=== PATIENT | female | born 1960 | race Caucasian/White ===

== ENCOUNTER 2017-10-02 11:46 | Inpatient (IN) | payer OTHER ==
--- NOTE | 2017-10-02 11:53 | PDOC ---
History of Present Illness <Elba Dominguez - Last Filed: 10/02/17 13:56> - General History Source: Patient Exam Limitations: Other - History of Present Illness Initial Comments: 10/02/17 12:14 The patient is a 56 year old female, with a significant past medical history of COPD, migraines and prior CVA/TIA, who presents to the emergency department sent by her neurologist Dr. Leslie, for evaluation of slurred speech, facial droop, and weakness since last night. The patient reports she felt bad last night. As per Dr. Leslie, patient has a history of TIAs in the past, however, he sent the patient to the ED for MRI with gadolinium to rule out neurosarcoidosis. Per Dr. Leslie, patients symptoms are intermittent and she did not have any difficulty finding words in the office. Patients history is limited due to clinical condition. Patient last known well yesterday. Allergies: Erythromycin base Neurologist: Dr. Leslie PCP: Dr. Pandya <Chidi Rodriguez - Last Filed: 10/02/17 14:32> - General Stated Complaint: ALTERED MENTAL (PCP SENT) Time Seen by Provider: 10/02/17 11:53 NIH Stroke Scale - Last Known Well Date/Time & Onset Date Last Known Well: 10/01/17 - Initial Evaluation Level of consciousness: Alert Ask patient the month and their age: Answers both correctly Ask patient to open & close eyes; make fist and let go: Obeys both correctly Best gaze (horizontal eye movement): Normal Visual field testing: No visual field loss Facial paresis (Show teeth/raise eyebrows/close eyes tight): Partial paralysis ( total or near paralysis of lower face) Motor Function: Left Arm: Normal Motor Function: Right Arm: Drift Motor Function: Left Leg: Normal (extends leg 30 degrees for 5 seconds without drift) Motor Function: Right Leg: Drift Limb Ataxia: No ataxia Sensory(Use pinprick test arms,legs,trunk,face/side to side): Normal Best language (Describe picture, name items, read sentences): Mild to moderate aphasia Dysarthria (read several words): Normal articulation Extinction and Inattention: No abnormality - Total Score NIH Stroke Scale Score: 5 <Elba Dominguez - Last Filed: 10/02/17 13:56> Past History <Elba Dominguez - Last Filed: 10/02/17 13:56> <Chidi Rodriguez - Last Filed: 10/02/17 14:32> - Past Medical History Allergies/Adverse Reactions: Allergies Allergy/AdvReac Type Severity Reaction Status Date / Time erythromycin base Allergy Verified 10/02/17 11:48 Home Medications: Ambulatory Orders Atorvastatin Ca [Lipitor] 40 mg PO HS 10/02/17 Fenofibrate,Micronized [Fenofibrate] 67 mg PO DAILY 10/02/17 Levothyroxine [Synthroid -] 50 mcg PO DAILY 10/02/17 Meclizine HCl 12.5 mg PO BID PRN 10/02/17 Metoprolol Tartrate 25 mg PO BID 10/02/17 Ranolazine [Ranexa] 500 mg PO BID 10/02/17 Review of Systems - Review of Systems Able to Perform ROS?: No Comments:: 10/02/17 12:14 History limited due to patient's clinical condition. <Chidi Rodriguez - Last Filed: 10/02/17 14:32> *Physical Exam - Vital Signs Last Vital Signs Temp Pulse Resp BP Pulse Ox 98.8 F 87 19 151/96 97 10/02/17 11:49 10/02/17 11:49 10/02/17 11:49 10/02/17 11:49 10/02/17 11:49 <Chidi Rodriguez - Last Filed: 10/02/17 14:32> ED Treatment Course - LABORATORY CBC & Chemistry Diagram: 10/02/17 12:20 10/02/17 12:20 <Elba Dominguez - Last Filed: 10/02/17 13:56> - LABORATORY CBC & Chemistry Diagram: 10/02/17 12:20 10/02/17 12:20 - RADIOLOGY Radiograph Interpretation: 10/02/17 14:31 EXAM: Head CT INTERPRETED BY: Dr. Serrano REVIEWED BY: Dr. Dominguez IMPRESSION: No CT evidence of intracranial hemorrhage or acute infarction. Status post left frontal craniotomy with mild focal hypodensity within the subjacent left frontal lobe probably on the basis of encephalomalacia as noted above. A surgical clip probably representing an aneurysm clip is seen within the left suprasellar region. No prior imaging studies are available at this facility for direct comparison. Atherosclerotic calcifications are noted along the cavernous carotid arteries bilaterally which are probably somewhat more prominent than would be for the patient's chronologic age. <Chidi Rodriguez - Last Filed: 10/02/17 14:32> Medical Decision Making - Medical Decision Making 10/02/17 12:16 Case d/w Dr. Leslie via phone. Patient would not be a tPA candidate as her symptoms started last night with facial droop. Of note, the word-finding difficulty appears to have started in ED. She also did not have drift in office , but in ED she has slight RUE/RLE drift. I will obtain emergent CTH to r/o ICH. If neg will plan for admission for MRI as per neuro. Pt is known to Dr. Pandya. 10/02/17 13:56 Late entry. Discussion with , who arrived as patient was going to CT. While she was in CT he stated that she has had word-finding difficulty with migraines in the past, this is not a new symptom. However, the facial droop is new. I have reviewed CTH, no acute bleed. Patient has clips due to prior aneurysm, they are MRI safe ( has the card). D/w Dr. Pandya, will place on obs. <Elba Dominguez - Last Filed: 10/02/17 13:56> - Medical Decision Making 10/02/17 12:31 First call placed to Dr. Leslie at 12:10. Case discussed at this time. <Chidi Rodriguez - Last Filed: 10/02/17 14:32> *DC/Admit/Observation/Transfer - Discharge Dispostion Admit: Yes <Elba Dominguez - Last Filed: 10/02/17 13:56> - Attestations Scribe Attestion: 10/02/17 12:14 Documentation prepared by Chidi Rodriguez, acting as medical doctor md for Elba Dominguez MD. <Chidi Rodriguez - Last Filed: 10/02/17 14:32> Diagnosis at time of Disposition: Facial droop Headache Qualifiers: Headache type: unspecified Headache chronicity pattern: episodic headache Intractability: not intractable Qualified Code(s): R51 - Headache - Discharge Dispostion Condition at time of disposition: Stable
[2017-10-02 12:29] LABS: BASO % 1.2 % (0-2.0); EOS % 2.5 % (0-4.5); HEMOGLOBIN 14.8 GM/dL (10.7-15.3); LYMPH % 40.5 % (8-40); MCH 28.9 pg (25.7-33.7); MCHC 32.2 g/dl (32.0-36.0); MEAN CELL VOLUME 89.7 fl (80-96); MEAN PLT VOLUME 9.2 fl (7.5-11.1); MONO % 8.5 % (3.8-10.2); NEUT % 47.3 % (42.8-82.8); PLATELET COUNT 341 K/MM3 (134-434); RBC 5.13 M/mm3 (3.60-5.2); RDW 14.3 % (11.6-15.6); WHITE BLOOD COUNT 5.5 K/mm3 (4.0-10.0)
[2017-10-02 12:40] LABS: INR 1.07 (0.82-1.09); PROTHROMBIN TIME (PATIENT) 12.1 SEC (9.98-11.88)
[2017-10-02 13:01] LABS: ALBUMIN 4.1 g/dl (3.4-5.0); ANION GAP 6 (8-16); BILIRUBIN,TOTAL 0.4 mg/dL (0.2-1.0); BLOOD UREA NITROGEN 19 mg/dL (7-18); CALCIUM 8.9 mg/dL (8.5-10.1); CHLORIDE 109 mmol/L (98-107); CHOLESTEROL 169 mg/dL (50-200); CO2 26 mmol/L (21-32); CREATININE 0.9 mg/dL (0.55-1.02); GLUCOSE,RANDOM 95 mg/dL (74-106); LDL CHOLESTEROL (ONLY SJRH) 104 mg/dL (5-100); POTASSIUM 4.1 mmol/L (3.5-5.1); SGOT/AST 13 U/L (15-37); SGPT/ALT 16 U/L (12-78); SODIUM 141 mmol/L (136-145); TOT PROT 7.6 g/dl (6.4-8.2); TRIGLYCERIDES 93 mg/dL (35-160)
[2017-10-02] MEDS: SODIUM CHLORIDE 1,000 ML IV SCH (13:01)
[2017-10-02 13:02] LABS: ALK PHOS 105 U/L (45-117); HDL CHOLESTEROL 48 mg/dL (40-60)
[2017-10-02] MEDS ORDERED: ACETAMINOPHEN/CAFFEINE/BUTALBITAL 1 TAB PO ONE (13:41)
[2017-10-02] MEDS ORDERED: ACETAMINOPHEN/CAFFEINE/BUTALBITAL 1 TAB ONE (13:47)
[2017-10-02] MEDS ORDERED: METOCLOPRAMIDE HCL INJECTION 10 MG/2 ML VIAL IVPUSH ONE (13:49)
[2017-10-02] MEDS ORDERED: ACETAMINOPHEN 1000 MG/100 ML VIAL (NON FORMULARY) IVPB ONE (13:49)
[2017-10-02] MEDS ORDERED: ACETAMINOPHEN INJECTION 100 ML IVPB ONE (13:51)
[2017-10-02] MEDS ORDERED: METOCLOPRAMIDE HCL INJECTION 10 MG/2 ML VIAL ONE (13:51)
--- NOTE | 2017-10-02 16:48 | HP ---
Admitting History and Physical - Primary Care Physician PCP: Brittney Pandya - Admission History of Present Illness: 56 year old female, with a significant past medical history of COPD, migraines and prior CVA/TIA, who presents to the emergency department sent by her neurologist Dr. Leslie, for evaluation of slurred speech, facial droop, and weakness since last night. The patient reports she felt bad last night. As per Dr. Leslie, patient has a history of TIAs in the past, however, he sent the patient to the ED for MRI with gadolinium to rule out neurosarcoidosis. Per Dr. Leslie, patients symptoms are intermittent and she did not have any difficulty finding words in the office. Patients history is limited due to clinical condition. - Past Medical History CLIENT SERVICES SPECIALIST: Yes: CVA, Migraine Pulmonary: Yes: COPD - Smoking History Smoking history: Unknown if ever smoked Home Medications - Allergies Allergies/Adverse Reactions: Allergies Allergy/AdvReac Type Severity Reaction Status Date / Time erythromycin base Allergy Verified 10/02/17 11:48 - Home Medications Home Medications: Ambulatory Orders Atorvastatin Ca [Lipitor] 40 mg PO HS 10/02/17 Fenofibrate,Micronized [Fenofibrate] 67 mg PO DAILY 10/02/17 Levothyroxine [Synthroid -] 50 mcg PO DAILY 10/02/17 Meclizine HCl 12.5 mg PO BID PRN 10/02/17 Metoprolol Tartrate 25 mg PO BID 10/02/17 Ranolazine [Ranexa] 500 mg PO BID 10/02/17 Physical Examination Vital Signs: Vital Signs Temperature 98.8 F 10/02/17 11:49 Pulse Rate 84 10/02/17 13:35 Respiratory Rate 18 10/02/17 13:35 Blood Pressure 138/79 10/02/17 13:35 O2 Sat by Pulse Oximetry (%) 97 10/02/17 13:35 Constitutional: Yes: No Distress HENT: Yes: Other (facial droop) Neck: Yes: Supple Cardiovascular: Yes: Regular Rate and Rhythm Respiratory: Yes: CTA Bilaterally Gastrointestinal: Yes: Normal Bowel Sounds Extremities: Yes: WNL Neurological: Yes: Alert, Oriented Labs: CBC, BMP 10/02/17 12:20 10/02/17 12:20 Problem List - Problems (1) Facial droop Assessment/Plan: will monitor head ct negative neuro on case Code(s): R29.810 - FACIAL WEAKNESS (2) Headache Assessment/Plan: prn pain meds Code(s): R51 - HEADACHE Qualifiers: Headache type: unspecified Headache chronicity pattern: episodic headache Intractability: not intractable Qualified Code(s): R51 - Headache Assessment/Plan Laboratory Tests 10/02/17 10/02/17 10/02/17 12:20 12:20 12:20 WBC 5.5 RBC 5.13 Hgb 14.8 Hct 46.0 H MCV 89.7 MCH 28.9 MCHC 32.2 RDW 14.3 Plt Count 341 MPV 9.2 Neutrophils % 47.3 Lymphocytes % 40.5 H Monocytes % 8.5 Eosinophils % 2.5 Basophils % 1.2 PT with INR 12.10 H INR 1.07 Sodium 141 Potassium 4.1 Chloride 109 H Carbon Dioxide 26 Anion Gap 6 L BUN 19 H Creatinine 0.9 Creat Clearance w eGFR > 60 Random Glucose 95 Calcium 8.9 Total Bilirubin 0.4 AST 13 L ALT 16 Alkaline Phosphatase 105 Creatine Kinase 58 Troponin I < 0.02 Total Protein 7.6 Albumin 4.1 Triglycerides 93 Cholesterol 169 Total LDL Cholesterol 104 H HDL Cholesterol 48 Blood Type Antibody Screen 10/02/17 12:20 WBC RBC Hgb Hct MCV MCH MCHC RDW Plt Count MPV Neutrophils % Lymphocytes % Monocytes % Eosinophils % Basophils % PT with INR INR Sodium Potassium Chloride Carbon Dioxide Anion Gap BUN Creatinine Creat Clearance w eGFR Random Glucose Calcium Total Bilirubin AST ALT Alkaline Phosphatase Creatine Kinase Troponin I Total Protein Albumin Triglycerides Cholesterol Total LDL Cholesterol HDL Cholesterol Blood Type O POSITIVE Antibody Screen Negative Active Medications Generic Name Dose Route Start Last Admin Trade Name Prakash PRN Reason Stop Dose Admin Sodium Chloride 1,000 mls @ 42 mls/hr 10/02/17 12:15 10/02/17 13:01 Normal Saline - IV 42 mls/hr ASDIR [facility] Administration
[2017-10-02] MEDS ORDERED: PNEUMOC 13-VAL CONJ-DIP CRM/PF 0.5 ML DISP.SYRIN IM ONE (18:15)
[2017-10-02 18:29] VITALS: BMI 37.8
--- NOTE | 2017-10-02 19:24 | CON.NEURO ---
Consult Consult Specialty:: NEUROLOGY-ALIVIA GARZA - History of Present Illness History of Present Illness: 56 y/o lady with a PMHx. sig for hypothyroidism, angina, right ant.cerebral art. aneurysm clipping, recurrent bronchitis, chronic vertigo hyperlipidemia and chronic migraine without aura. Meds-Synthroid, Fenofibrate, Ranexa, Meclizine and Botox every 3 months for migraine prophylaxis(last given 1 month ago with good results, WELDON has recurred 2 days ago). Reports yesterday her PMD noted right facial droop and she has had hesitant speech and word finding difficulty, intermittent.In my office today i noted the facial deficit and hesitaant speech in addition to a hint of possible upper face weakness-sent to ER where the ER physician also noted right arm weakness. No other neurologic symptoms. - Past Medical History [employer]: Yes: CVA, Migraine Pulmonary: Yes: COPD - Smoking History Smoking history: Unknown if ever smoked Home Medications - Allergies Allergies/Adverse Reactions: Allergies Allergy/AdvReac Type Severity Reaction Status Date / Time erythromycin base Allergy Verified 10/02/17 11:48 - Home Medications Home Medications: Ambulatory Orders Atorvastatin Ca [Lipitor] 40 mg PO HS 10/02/17 Fenofibrate,Micronized [Fenofibrate] 67 mg PO DAILY 10/02/17 Levothyroxine [Synthroid -] 50 mcg PO DAILY 10/02/17 Meclizine HCl 12.5 mg PO BID PRN 10/02/17 Metoprolol Tartrate 25 mg PO BID 10/02/17 Ranolazine [Ranexa] 500 mg PO BID 10/02/17 Physical Exam-Neuro Vital Signs: Vital Signs Temperature 98.8 F 10/02/17 11:49 Pulse Rate 68 10/02/17 16:54 Respiratory Rate 18 10/02/17 16:54 Blood Pressure 105/63 10/02/17 16:54 O2 Sat by Pulse Oximetry (%) 98 10/02/17 16:54 Labs: CBC, BMP 10/02/17 12:20 10/02/17 12:20 INR, PTT INR 1.07 (0.82-1.09) 10/02/17 12:20 - Neuro Exam Level Of Consciousness: Yes: Alert, Oriented to Person, Oriented to Place, Oriented to Time Eyes: Yes: PERRL Speech: WNL (Now speech is fluent, no aphasia) Dominant Hand: Right Mini Mental Exam: WNL Cranial Nerves II-XII Intact: No (Right central facial deficit but right frontalis appears weak too, not sure of this finding. + bitemporal pulses, no temporal tenderness.) Gag: Present DTR's: 2+ Left Bicep, 2+ Right Bicep, 2+ Left Tricep, 2+ Right Tricep, 2+ Left Brachioradialis, 2+ Right Brachioradialis, 2+ Left Achilles, 2+ Right Achilles Babinski: Absent Response to light touch: Normal Response to pain prick: Normal Response to temperature: Normal Response to vibration: Normal Motor Strength: 5/5: Left Arm, Right Arm, Left Leg, Right Leg (+ RUE pronator drift) Gait: Normal Assessment/Plan Pt. with new right central vs peripheral facial nerve motor deficit and RUE drift. CT head with left suprasellar clip only, no acute findings. Plan: Cont. current meds Depacon 500mg ivss q8hrs MRI brain+/-gadolinium( to look for ischemia and possible sarcoidosis ESR, CRP, MAGDY, KENDALL level, lyme titer
[2017-10-02] MEDS ORDERED: LORazepam 2 MG/ML SDV VIAL IVPUSH ONE (20:00)
[2017-10-02] MEDS ORDERED: PT OWN MED DRAWER 7, Y5N ONE (20:10)
[2017-10-02] MEDS: RANOLAZINE E.R. 500 MG TABLET (FP) PO SCH (21:17)
[2017-10-02] MEDS: VALPROATE SODIUM 500 MG/5 ML VIAL IVPB SCH (21:17)
[2017-10-02] MEDS: METOPROLOL TARTRATE 25 MG TABLET (FP) PO SCH (21:17)
[2017-10-02] MEDS ORDERED: ATORVASTATIN CA 40 MG TABLET (FP) PO SCH (22:00)
[2017-10-03] MEDS ORDERED: IBUPROFEN 400 MG TABLET (FP) PO ONE (02:30)
[2017-10-03] MEDS ORDERED: PT OWN MED DRAWER 7, Y5N ONE ×3 (05:05→20:52)
[2017-10-03] MEDS: VALPROATE SODIUM 500 MG/5 ML VIAL IVPB SCH ×3 (05:38→22:00)
[2017-10-03] MEDS: LEVOTHYROXINE NA 50 MCG TABLET (FP) PO SCH (06:09)
[2017-10-03 07:15] LABS: BASO % 0.7 % (0-2.0); EOS % 2.6 % (0-4.5); HEMATOCRIT 40.6 % (32.4-45.2); HEMOGLOBIN 13.4 GM/dL (10.7-15.3); LYMPH % 54.4 % (8-40); MCHC 33.1 g/dl (32.0-36.0); MEAN CELL VOLUME 90.7 fl (80-96); MONO % 7.5 % (3.8-10.2); NEUT % 34.8 % (42.8-82.8); PLATELET COUNT 318 K/MM3 (134-434); RBC 4.47 M/mm3 (3.60-5.2); RDW 13.9 % (11.6-15.6); WHITE BLOOD COUNT 6.2 K/mm3 (4.0-10.0)
[2017-10-03 07:45] LABS: ALBUMIN 3.5 g/dl (3.4-5.0); ANION GAP 11 (8-16); BLOOD UREA NITROGEN 17 mg/dL (7-18); CALCIUM 8.8 mg/dL (8.5-10.1); CHLORIDE 107 mmol/L (98-107); CO2 24 mmol/L (21-32); GLUCOSE,RANDOM 89 mg/dL (74-106); POTASSIUM 4.5 mmol/L (3.5-5.1); SGOT/AST 11 U/L (15-37); SODIUM 142 mmol/L (136-145)
[2017-10-03 07:48] LABS: ALK PHOS 94 U/L (45-117); BILIRUBIN,TOTAL 0.3 mg/dL (0.2-1.0); CREATININE 0.9 mg/dL (0.55-1.02); SGPT/ALT 15 U/L (12-78)
[2017-10-03] MEDS ORDERED: LORazepam 2 MG/ML SDV VIAL IVPUSH ONE (10:15)
[2017-10-03] MEDS: METOPROLOL TARTRATE 25 MG TABLET (FP) PO SCH (10:19)
[2017-10-03] MEDS: RANOLAZINE E.R. 500 MG TABLET (FP) PO SCH ×2 (10:19→21:57)
[2017-10-03] MEDS: FENOFIBRIC ACID 45 MG CAP PO SCH (12:30)
--- NOTE | 2017-10-03 12:41 | CON.CARD ---
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 Leslie, for evaluation of slurred speech, facial droop, and weakness since last night. The patient reports she felt bad last night. As per Dr. Leslie, patient has a history of TIAs in the past, however , he sent the patient to the ED for MRI with gadolinium to rule out neurosarcoidosis. Per Dr. Leslie, patients symptoms are intermittent and she did not have any difficulty finding words in the office. Patients history is limited due to clinical condition. Patient last known well yesterday. Pt also has occasional sudden onset of central chest tightness that awakens her , is moderately severe in intensity (8/10), and may last several minutes. Pt has had nitroglycerin, but forgets to use it. It does not usually occur with exertion, but pt admits to being relatively sedentary. Allergies: Erythromycin base Neurologist: Dr. Leslie PCP: Dr. Pandya - History Source History Provided By: Patient, Family Member (), Medical Record Limitations to Obtaining History: No Limitations - Past Medical History [employer]ING [employer]ATOR: Yes: CVA, Migraine Pulmonary: Yes: Asthma, COPD Reproductive: Yes: Postmenopausal ...: No Psych: Yes: Anxiety, Depression Rheumatology: Yes: Fibromyalgia Endocrine: No: Diabetes Mellitus - Past Surgical History Past Surgical History: Yes: Craniotomy (s/p cerebral aneuysm clip), Hysterectomy - Alcohol/Substance Use Hx Alcohol Use: No - Smoking History Smoking history: Current some day smoker (started smoking as teenager, smoked 1/ 2 ppd for about 20 yrs; now smokes a cigarette every few days) - Social History Usual Living Arrangement: With Spouse Home Medications - Allergies Allergies/Adverse Reactions: Allergies Allergy/AdvReac Type Severity Reaction Status Date / Time tree nut Allergy Severe Difficulty Verified 10/03/17 14:38 Breathing wheat Allergy Mild Itching Verified 10/03/17 14:38 erythromycin base Allergy Verified 10/02/17 11:48 fruits Allergy Severe Itching Uncoded 10/03/17 12:36 - Home Medications Home Medications: Ambulatory Orders Atorvastatin Ca [Lipitor] 40 mg PO HS 10/02/17 Fenofibrate,Micronized [Fenofibrate] 67 mg PO DAILY 10/02/17 Levothyroxine [Synthroid -] 50 mcg PO DAILY 10/02/17 Meclizine HCl 12.5 mg PO BID PRN 10/02/17 Metoprolol Tartrate 25 mg PO BID 10/02/17 Ranolazine [Ranexa] 500 mg PO BID 10/02/17 Family Disease History - Family Disease History Family Disease History: Diabetes: Father (several MIs, the first in his 30s; early 50s), Heart Disease: Father Review of Systems - Review of Systems Constitutional: reports: Weakness Eyes: reports: No Symptoms HENT: reports: No Symptoms Neck: reports: No Symptoms Cardiovascular: reports: Chest Pain Respiratory: reports: No Symptoms Gastrointestinal: reports: No Symptoms Genitourinary: reports: No Symptoms Breasts: reports: No Symptoms Reported Musculoskeletal: reports: Muscle Pain, Muscle Weakness Integumentary: reports: No Symptoms Neurological: reports: Change in Speech, Headache, Weakness Endocrine: reports: No Symptoms Hematology/Lymphatic: reports: No Symptoms Psychiatric: reports: Anxiety, Depression - Risk Factors Known Risk Factors: Yes: Age, Family History, Hypercholesterolemia, Hypertension , Physical Inactivity, Other (CVA x 2) Vital Signs: Vital Signs Temperature 97.7 F 10/03/17 06:00 Pulse Rate 65 10/03/17 06:00 Respiratory Rate 16 10/03/17 06:00 Blood Pressure 137/73 10/03/17 06:00 O2 Sat by Pulse Oximetry (%) 98 10/03/17 06:00 Constitutional: Yes: Calm, Obese Eyes: Yes: WNL HENT: Yes: WNL Neck: Yes: WNL Respiratory: Yes: WNL Gastrointestinal: Yes: Soft Renal/: No: Anuria Cardiovascular: Yes: Regular Rate and Rhythm JVD: No Carotid Bruit: No PMI: Non-Displaced Heart Sounds: Yes: S1, S2 Musculoskeletal: Yes: Joint Stiffness, Muscle Weakness Extremities: Yes: WNL Edema: No Peripheral Pulses WNL: Yes Integumentary: Yes: WNL Neurological: Yes: Weakness Psychiatric: Yes: Other (anxeity/depression) - Other Data Labs, Other Data: CBC, BMP 10/03/17 06:30 10/03/17 06:30 INR, PTT INR 1.07 (0.82-1.09) 10/02/17 12:20 Troponin, BNP 10/02/17 12:20 Troponin I < 0.02 Troponin, BNP 10/02/17 12:20 Troponin I < 0.02 Abnormal Lab Results 10/03/17 10/03/17 10/03/17 06:30 06:30 19:17 Neutrophils % 34.8 L D Lymphocytes % 54.4 H D AST 11 L C-Reactive Protein 1.0 H Echo: Pending Imaging - Results EKG: Image Reviewed (normal sinus rhythm; small Q in lead III) Problem List - Problems (1) CVA (cerebral vascular accident) Code(s): I63.9 - CEREBRAL INFARCTION, UNSPECIFIED (2) HTN (hypertension) Assessment/Plan: On synthroid; await TSH. Code(s): I10 - ESSENTIAL (PRIMARY) HYPERTENSION (3) Hyperlipidemia Assessment/Plan: On atorvastatin; keep LDL < 70 mg/dL (will increase from 40 mg to 80 mg daily; also on fenofibrate). Code(s): E78.5 - HYPERLIPIDEMIA, UNSPECIFIED (4) Hypothyroid Assessment/Plan: on synthroid. Code(s): E03.9 - HYPOTHYROIDISM, UNSPECIFIED (5) Obesity Assessment/Plan: Pt plans on losing a considerable amount of weight (weighed about 120 lbs at 24 yrs old). Code(s): E66.9 - OBESITY, UNSPECIFIED (6) Anxiety and depression Code(s): F41.8 - OTHER SPECIFIED ANXIETY DISORDERS (7) Risk for coronary artery disease between 10% and 20% in next 10 years per [place] score Assessment/Plan: Multiple cardiac risks. Pt had a stress test about 5 years ago. She has again been having chest pain, and has EKG changes. She has gained weight, still smokes an occasional cigarette, does little in the way of exercise, has LDL cholesterol > 100 mg/dL despite being on statin and fibrate, has anxeity/ depression, and has strong family hx of CAD. Will get ECHO for LVEF, wall thickness and motion, valve status. Stress treadmill MIBI (pt says she can walk on a treadmill); if unable to reach goals, will require pharmacologic therapy (hx of asthma and COPD; may require dobutamine as stress agent if unable to walk adequately). Code(s): Z91.89 - OTH PERSONAL RISK FACTORS, NOT ELSEWHERE CLASSIFIED (8) Headache Code(s): R51 - HEADACHE Qualifiers: Headache type: unspecified Headache chronicity pattern: episodic headache Intractability: not intractable Qualified Code(s): R51 - Headache (9) Bronchial asthma Assessment/Plan: Pt has been on metoprolol for years, does not think it has compromised her lungs. F/u pulmonary workup. Metoprolol stopped prior to stress MIBI; reevaluate need and safety of it after the test tomorrow before restarting. Code(s): J45.909 - UNSPECIFIED ASTHMA, UNCOMPLICATED
--- NOTE | 2017-10-03 14:37 | EKG ---
Test Reason : Blood Pressure : / mmHG Vent. Rate : 066 BPM Atrial Rate : 066 BPM P-R Int : 172 ms QRS Dur : 076 ms QT Int : 408 ms P-R-T Axes : 043 008 000 degrees QTc Int : 427 ms NORMAL SINUS RHYTHM CANNOT RULE OUT INFERIOR INFARCT , AGE UNDETERMINED ABNORMAL ECG NO PREVIOUS ECGS AVAILABLE Confirmed by MANDA GARZA, VERNELL ([id number]) on 10/03/2017 2:37:19 PM Referred By: Confirmed By:VERNELL HOLMAN MD
--- NOTE | 2017-10-03 16:42 | PN ---
Progress Note, Physician History of Present Illness: feeling much better - Current Medication List Current Medications: Active Medications Atorvastatin Calcium (Lipitor -) 80 mg PO HS [facility] Dexamethasone Sodium Phosphate (Decadron Injection -) 4 mg IVPUSH Q8H-IV [facility] Diphenhydramine HCl (Benadryl -) 25 mg PO Q6H PRN PRN Reason: ITCHINESS Fenofibric Acid (Trilipix -) 45 mg PO DAILY [facility] Last Admin: 10/03/17 12:30 Dose: 45 mg Sodium Chloride (Normal Saline -) 1,000 mls @ 42 mls/hr IV ASDIR [facility] Last Admin: 10/02/17 13:01 Dose: 42 mls/hr Levothyroxine Sodium (Synthroid -) 50 mcg PO DAILY@0700 [facility] Last Admin: 10/03/17 06:09 Dose: 50 mcg Ranolazine (Ranexa -) 500 mg PO BID [facility] Last Admin: 10/03/17 10:19 Dose: 500 mg Valproate Sodium (Depacon Injection -) 500 mg IVPB TID [facility] Last Admin: 10/03/17 13:52 Dose: 500 mg - Objective Vital Signs: Vital Signs Temperature 97.7 F 10/03/17 06:00 Pulse Rate 65 10/03/17 06:00 Respiratory Rate 16 10/03/17 14:00 Blood Pressure 137/73 10/03/17 06:00 O2 Sat by Pulse Oximetry (%) 98 10/03/17 14:00 Constitutional: Yes: No Distress HENT: Yes: Atraumatic Neck: Yes: Supple Cardiovascular: Yes: Regular Rate and Rhythm Respiratory: Yes: CTA Bilaterally Gastrointestinal: Yes: Normal Bowel Sounds Extremities: Yes: Other (has swelling in front of calves says its chronic but hurts) Neurological: Yes: Alert, Oriented Labs: CBC, BMP 10/03/17 06:30 10/03/17 06:30 INR, PTT INR 1.07 (0.82-1.09) 10/02/17 12:20 Problem List - Problems (1) Facial droop Assessment/Plan: almost resolved Code(s): R29.810 - FACIAL WEAKNESS (2) Headache Assessment/Plan: prn pain meds see neuro notes Code(s): R51 - HEADACHE Qualifiers: Headache type: unspecified Headache chronicity pattern: episodic headache Intractability: not intractable Qualified Code(s): R51 - Headache (3) Anxiety and depression Code(s): F41.8 - OTHER SPECIFIED ANXIETY DISORDERS (4) HTN (hypertension) Code(s): I10 - ESSENTIAL (PRIMARY) HYPERTENSION (5) Hyperlipidemia Code(s): E78.5 - HYPERLIPIDEMIA, UNSPECIFIED (6) Hypothyroid Code(s): E03.9 - HYPOTHYROIDISM, UNSPECIFIED
[2017-10-03] MEDS: DEXAMETHASONE SOD PHOSPHATE 4 MG/1 ML VIAL IVPUSH SCH (17:48)
--- NOTE | 2017-10-03 17:51 | PN ---
Progress Note (short form) - Note Progress Note: 56 y/o lady with a PMHx. sig for hypothyroidism, angina, right ant.cerebral art. aneurysm clipping, recurrent bronchitis, chronic vertigo hyperlipidemia and chronic migraine without aura. Meds-Synthroid, Fenofibrate, Ranexa, Meclizine and Botox every 3 months for migraine prophylaxis(last given 1 month ago with good results, WELDON has recurred 2 days ago). Reports yesterday her PMD noted right facial droop and she has had hesitant speech and word finding difficulty, intermittent.In my office today i noted the facial deficit and hesitaant speech in addition to a hint of possible upper face weakness-sent to ER where the ER physician also noted right arm weakness. No other neurologic symptoms. FU : WELDON continues 04/14 , though feels better than yesterday MRI BRAIN IMPRESSION: 1. No evidence of acute infarction or intracranial mass. No abnormal contrast enhancement within the leptomeninges or brain. 2. Postsurgical changes related to left frontotemporal craniotomy as described above, with encephalomalacia/gliosis in the inferolateral left frontal lobe and aneurysm clip in the region of the anterior communicating artery. - Past Medical History [employer]: Yes: CVA, Migraine Pulmonary: Yes: COPD - Smoking History Smoking history: Unknown if ever smoked Home Medications - Allergies Allergies/Adverse Reactions: Allergies Allergy/AdvReac Type Severity Reaction Status Date / Time erythromycin base Allergy Verified 10/02/17 11:48 - Home Medications Home Medications: Ambulatory Orders Atorvastatin Ca [Lipitor] 40 mg PO HS 10/02/17 Fenofibrate,Micronized [Fenofibrate] 67 mg PO DAILY 10/02/17 Levothyroxine [Synthroid -] 50 mcg PO DAILY 10/02/17 Meclizine HCl 12.5 mg PO BID PRN 10/02/17 Metoprolol Tartrate 25 mg PO BID 10/02/17 Ranolazine [Ranexa] 500 mg PO BID 10/02/17 Physical Exam-Neuro Vital Signs: Vital Signs Period Temp Pulse Resp BP Sys/Olivera Pulse Ox Last 24 Hr 97.7 F-98.9 F 65-88 16-20 137-150/62-73 98-98 Labs: CBCD WBC 6.2 K/mm3 (4.0-10.0) 10/03/17 06:30 RBC 4.47 M/mm3 (3.60-5.2) 10/03/17 06:30 Hgb 13.4 GM/dL (10.7-15.3) 10/03/17 06:30 Hct 40.6 % (32.4-45.2) 10/03/17 06:30 MCV 90.7 fl (80-96) 10/03/17 06:30 MCHC 33.1 g/dl (32.0-36.0) 10/03/17 06:30 RDW 13.9 % (11.6-15.6) 10/03/17 06:30 Plt Count 318 K/MM3 (134-434) 10/03/17 06:30 MPV 9.0 fl (7.5-11.1) 10/03/17 06:30 CMP Sodium 142 mmol/L (136-145) 10/03/17 06:30 Potassium 4.5 mmol/L (3.5-5.1) 10/03/17 06:30 Chloride 107 mmol/L (98-107) 10/03/17 06:30 Carbon Dioxide 24 mmol/L (21-32) 10/03/17 06:30 Anion Gap 11 (8-16) 10/03/17 06:30 BUN 17 mg/dL (7-18) 10/03/17 06:30 Creatinine 0.9 mg/dL (0.55-1.02) 10/03/17 06:30 Creat Clearance w eGFR > 60 (>60) 10/03/17 06:30 Calcium 8.8 mg/dL (8.5-10.1) 10/03/17 06:30 Total Bilirubin 0.3 mg/dL (0.2-1.0) D 10/03/17 06:30 AST 11 U/L (15-37) L 10/03/17 06:30 ALT 15 U/L (12-78) 10/03/17 06:30 Alkaline Phosphatase 94 U/L (45-117) 10/03/17 06:30 Total Protein 7.0 g/dl (6.4-8.2) 10/03/17 06:30 Albumin 3.5 g/dl (3.4-5.0) 10/03/17 06:30 - Neuro Exam Level Of Consciousness: Yes: Alert, Oriented to Person, Oriented to Place, Oriented to Time Eyes: Yes: PERRL Speech: WNL (Now speech is fluent, no aphasia) Dominant Hand: Right Mini Mental Exam: WNL Cranial Nerves II-XII Intact: No (Right central facial deficit but right frontalis appears weak too, not sure of this finding. + bitemporal pulses, no temporal tenderness.) Gag: Present DTR's: 2+ Left Bicep, 2+ Right Bicep, 2+ Left Tricep, 2+ Right Tricep, 2+ Left Brachioradialis, 2+ Right Brachioradialis, 2+ Left Achilles, 2+ Right Achilles Babinski: Absent Response to light touch: Normal Response to pain prick: Normal Response to temperature: Normal Response to vibration: Normal Motor Strength: 5/5: Left Arm, Right Arm, Left Leg, Right Leg (+ RUE pronator drift) Gait: Normal Assessment/Plan Pt. with new right central vs peripheral facial nerve motor deficit and RUE drift. CT head with left suprasellar clip only, no acute findings. Plan: start decadron , reglan , toradol Depacon 500mg ivss q8hrs MRI brain+/-gadolinium(-) was considering DHE though given angina/prior aneurysm will hold off check ESR, LYME , KENDALL
[2017-10-03] MEDS ORDERED: METOCLOPRAMIDE HCL INJECTION 10 MG/2 ML VIAL IVPUSH PRN (18:21)
[2017-10-03] MEDS ORDERED: KETOROLAC TROMETHAMINE 30 MG/1 ML VIAL IVPUSH ONE (18:24)
[2017-10-03] MEDS ORDERED: DIHYDROERGOTAMINE MESYLATE 1 MG/1 ML AMPULE IVPB SCH (18:30)
[2017-10-03] MEDS: diphenhydrAMINE HCL 25 MG CAPSULE (FP) PO PRN (18:55)
[2017-10-03] MEDS: ATORVASTATIN CA 80 MG TABLET (FP) PO SCH (21:57)
[2017-10-03] MEDS: SODIUM CHLORIDE 1,000 ML IV SCH (21:58)
[2017-10-04] MEDS: DEXAMETHASONE SOD PHOSPHATE 4 MG/1 ML VIAL IVPUSH SCH ×3 (01:13→17:06)
[2017-10-04] MEDS ORDERED: PT OWN MED DRAWER 7, Y5N ONE ×3 (03:29→21:39)
[2017-10-04] MEDS: VALPROATE SODIUM 500 MG/5 ML VIAL IVPB SCH ×3 (06:07→21:43)
[2017-10-04] MEDS: LEVOTHYROXINE NA 50 MCG TABLET (FP) PO SCH (06:07)
[2017-10-04] MEDS: FENOFIBRIC ACID 45 MG CAP PO SCH ×2 (09:39→13:13)
[2017-10-04] MEDS: RANOLAZINE E.R. 500 MG TABLET (FP) PO SCH ×3 (09:39→21:43)
[2017-10-04] MEDS: SODIUM CHLORIDE 1,000 ML IV SCH (13:11)
[2017-10-04] MEDS ORDERED: oxyCODONE HCL 5 MG TABLET PO ONE (15:15)
--- NOTE | 2017-10-04 16:54 | PN ---
Progress Note, Physician Chief Complaint: Pt sitting up at bedside; A&Ox3; still has trouble speaking smoothly (stutters, repeats); no chest pain or dyspnea. + Headache. Anxious. History of Present Illness: The patient is a 56 year old female, with a significant past medical history of COPD, HTN, hypothyroidism, hyperlipidemia, migraines and prior TIA, and CVA x 2 , s/p craniotomy for cerebral left anterior communicating artery aneurysm clipping, migraine headaches, obesity, anxiety/depression, cigarettes, family hx [place] (father, at young age), fibromyalgia, who presents to the emergency department sent by her neurologist Dr. Leslie, for evaluation of slurred speech, facial droop, and weakness since last night. The patient reports she felt bad last night. As per Dr. Leslie, patient has a history of TIAs in the past, however , he sent the patient to the ED for MRI with gadolinium to rule out neurosarcoidosis. Per Dr. Leslie, patients symptoms are intermittent and she did not have any difficulty finding words in the office. Patients history is limited due to clinical condition. Patient last known well yesterday. Pt also has occasional sudden onset of central chest tightness that awakens her , is moderately severe in intensity (8/10), and may last several minutes. Pt has had nitroglycerin, but forgets to use it. It does not usually occur with exertion, but pt admits to being relatively sedentary. Allergies: Erythromycin base Neurologist: Dr. Leslie PCP: Dr. Pandya - Current Medication List Current Medications: Active Medications Atorvastatin Calcium (Lipitor -) 80 mg PO HS [facility] Last Admin: 10/03/17 21:57 Dose: 80 mg Dexamethasone Sodium Phosphate (Decadron Injection -) 4 mg IVPUSH Q8H-IV [facility] Last Admin: 10/04/17 10:03 Dose: Not Given Diphenhydramine HCl (Benadryl -) 25 mg PO Q6H PRN PRN Reason: ITCHINESS Last Admin: 10/03/17 18:55 Dose: 25 mg Fenofibric Acid (Trilipix -) 45 mg PO DAILY [facility] Last Admin: 10/04/17 13:13 Dose: 45 mg Sodium Chloride (Normal Saline -) 1,000 mls @ 42 mls/hr IV ASDIR [facility] Last Admin: 10/04/17 13:11 Dose: Not Given Levothyroxine Sodium (Synthroid -) 50 mcg PO DAILY@0700 [facility] Last Admin: 10/04/17 06:07 Dose: 50 mcg Metoclopramide HCl (Reglan Injection -) 10 mg IVPUSH Q8H PRN PRN Reason: NAUSEA AND/OR VOMITING Ranolazine (Ranexa -) 500 mg PO BID [facility] Last Admin: 10/04/17 13:12 Dose: 500 mg Valproate Sodium (Depacon Injection -) 500 mg IVPB TID [facility] Last Admin: 10/04/17 13:11 Dose: 500 mg - Objective Vital Signs: Vital Signs Temperature 98.3 F 10/04/17 14:17 Pulse Rate 98 H 10/04/17 14:17 Respiratory Rate 20 10/04/17 14:17 Blood Pressure 142/86 10/04/17 14:17 O2 Sat by Pulse Oximetry (%) 98 10/04/17 08:00 Constitutional: Yes: Anxious Eyes: Yes: WNL HENT: Yes: WNL Neck: Yes: WNL Cardiovascular: Yes: WNL Respiratory: Yes: WNL Gastrointestinal: Yes: Soft, Abdomen, Obese ...Rectal Exam: Yes: Deferred Genitourinary: No: Anuria Breast(s): Yes: WNL Musculoskeletal: Yes: Muscle Weakness Extremities: Yes: WNL Edema: No Peripheral Pulses WNL: Yes Integumentary: Yes: WNL Neurological: Yes: Weakness Psychiatric: Yes: Other Labs: CBC, BMP 10/03/17 06:30 10/03/17 06:30 INR, PTT INR 1.07 (0.82-1.09) 10/02/17 12:20 Abnormal Lab Results 10/03/17 19:17 C-Reactive Protein 1.0 H Problem List - Problems (1) CVA (cerebral vascular accident) Assessment/Plan: hx craniotomy for cerebral aneurysmal clip. Code(s): I63.9 - CEREBRAL INFARCTION, UNSPECIFIED (2) HTN (hypertension) Assessment/Plan: Restart metoprolol (+ stress MIBI; HTN; despite hx of COPD and "asthma", pt has tolerated the medication well for years0> Code(s): I10 - ESSENTIAL (PRIMARY) HYPERTENSION (3) Hyperlipidemia Assessment/Plan: On atorvastatin; keep LDL < 70 mg/dL (will increase from 40 mg to 80 mg daily; also on fenofibrate). Code(s): E78.5 - HYPERLIPIDEMIA, UNSPECIFIED (4) Hypothyroid Assessment/Plan: on synthroid; TSH WNL. Code(s): E03.9 - HYPOTHYROIDISM, UNSPECIFIED (5) Obesity Code(s): E66.9 - OBESITY, UNSPECIFIED (6) Anxiety and depression Code(s): F41.8 - OTHER SPECIFIED ANXIETY DISORDERS (7) Risk for coronary artery disease between 10% and 20% in next 10 years per [place] score Assessment/Plan: Multiple cardiac risks. Pt had a stress test about 5 years ago. She has again been having chest pain, and has EKG changes. She has gained weight, still smokes an occasional cigarette, does little in the way of exercise, has LDL cholesterol > 100 mg/dL despite being on statin and fibrate, has anxeity/ depression, and has strong family hx of CAD. Will get ECHO for LVEF, wall thickness and motion, valve status. Stress treadmill MIBI (pt says she can walk on a treadmill); if unable to reach goals, will require pharmacologic therapy (hx of asthma and COPD; may require dobutamine as stress agent if unable to walk adequately). Code(s): Z91.89 - OTH PERSONAL RISK FACTORS, NOT ELSEWHERE CLASSIFIED (8) Headache Code(s): R51 - HEADACHE Qualifiers: Headache type: unspecified Headache chronicity pattern: episodic headache Intractability: not intractable Qualified Code(s): R51 - Headache (9) Bronchial asthma Assessment/Plan: Pt has been on metoprolol for years, does not think it has compromised her lungs. F/u pulmonary workup. Code(s): J45.909 - UNSPECIFIED ASTHMA, UNCOMPLICATED (10) Coronary artery disease Assessment/Plan: Stress MIBI: + for two areas of ischemia (small sized, mlldly intense apical, and small sized, moderately intense basal inferior oliveira); poor exercise capacity; mildly submaximal HR achieved). Plan: add clopidogrel to ASA *discussed with Dr. Torres; the combination may be used). Restart metoprolol ER. For coronary angiogram: tranfer after the weekend. Code(s): I25.10 - ATHSCL HEART DISEASE OF [place] CORONARY ARTERY W/O ANG PCTRS
[2017-10-04] MEDS: metoPROLOL SUCCINATE 25 MG TAB.SR.24H (FP) PO SCH (18:31)
[2017-10-04] MEDS: CLOPIDOGREL BISULFATE 75 MG TABLET (FP) PO SCH (18:31)
[2017-10-04] MEDS: ALPRAZolam 0.25 MG TABLET PO SCH (21:43)
[2017-10-04] MEDS: ATORVASTATIN CA 80 MG TABLET (FP) PO SCH (21:43)
[2017-10-04] MEDS: MORPHINE SULFATE 10 MG/1 ML *VIAL IVPUSH PRN (22:07)
[2017-10-05] MEDS: DEXAMETHASONE SOD PHOSPHATE 4 MG/1 ML VIAL IVPUSH SCH ×3 (01:38→18:30)
[2017-10-05] MEDS: MORPHINE SULFATE 10 MG/1 ML *VIAL IVPUSH PRN ×2 (04:46→13:50)
[2017-10-05] MEDS ORDERED: PT OWN MED DRAWER 7, Y5N ONE ×4 (05:49→21:51)
[2017-10-05] MEDS: VALPROATE SODIUM 500 MG/5 ML VIAL IVPB SCH ×3 (06:05→21:59)
[2017-10-05] MEDS: LEVOTHYROXINE NA 50 MCG TABLET (FP) PO SCH (06:05)
[2017-10-05] MEDS: RANOLAZINE E.R. 500 MG TABLET (FP) PO SCH ×2 (11:10→21:59)
[2017-10-05] MEDS: CLOPIDOGREL BISULFATE 75 MG TABLET (FP) PO SCH (11:10)
[2017-10-05] MEDS: metoPROLOL SUCCINATE 25 MG TAB.SR.24H (FP) PO SCH (11:10)
[2017-10-05] MEDS: FENOFIBRIC ACID 45 MG CAP PO SCH (11:10)
--- NOTE | 2017-10-05 11:17 | PN ---
Progress Note, Physician History of Present Illness: feeling good - Current Medication List Current Medications: Active Medications Alprazolam (Xanax -) 0.5 mg PO HS [facility] Last Admin: 10/04/17 21:43 Dose: 0.5 mg Atorvastatin Calcium (Lipitor -) 80 mg PO HS [facility] Last Admin: 10/04/17 21:43 Dose: 80 mg Clopidogrel Bisulfate (Plavix -) 75 mg PO DAILY [facility] Last Admin: 10/04/17 18:31 Dose: 75 mg Dexamethasone Sodium Phosphate (Decadron Injection -) 4 mg IVPUSH Q8H-IV [facility] Last Admin: 10/05/17 01:38 Dose: 4 mg Diphenhydramine HCl (Benadryl -) 25 mg PO Q6H PRN PRN Reason: ITCHINESS Last Admin: 10/03/17 18:55 Dose: 25 mg Fenofibric Acid (Trilipix -) 45 mg PO DAILY [facility] Last Admin: 10/04/17 13:13 Dose: 45 mg Sodium Chloride (Normal Saline -) 1,000 mls @ 42 mls/hr IV ASDIR [facility] Last Admin: 10/04/17 13:11 Dose: Not Given Levothyroxine Sodium (Synthroid -) 50 mcg PO DAILY@0700 [facility] Last Admin: 10/05/17 06:05 Dose: 50 mcg Metoclopramide HCl (Reglan Injection -) 10 mg IVPUSH Q8H PRN PRN Reason: NAUSEA AND/OR VOMITING Last Admin: 10/05/17 08:48 Dose: 10 mg Metoprolol Succinate (Toprol Xl -) 25 mg PO DAILY [facility] Last Admin: 10/04/17 18:31 Dose: 25 mg Morphine Sulfate (Morphine Injection -) 4 mg IVPUSH Q6H PRN PRN Reason: PAIN LEVEL 7 - 10 Last Admin: 10/05/17 04:46 Dose: 4 mg Ranolazine (Ranexa -) 500 mg PO BID [facility] Last Admin: 10/04/17 21:43 Dose: 500 mg Valproate Sodium (Depacon Injection -) 500 mg IVPB TID [facility] Last Admin: 10/05/17 06:05 Dose: 500 mg - Objective Vital Signs: Vital Signs Temperature 97.5 F L 10/05/17 09:05 Pulse Rate 86 10/05/17 09:05 Respiratory Rate 18 10/05/17 09:05 Blood Pressure 115/63 10/05/17 08:42 O2 Sat by Pulse Oximetry (%) 97 10/04/17 22:00 Constitutional: Yes: No Distress HENT: Yes: Atraumatic Neck: Yes: Supple Cardiovascular: Yes: Regular Rate and Rhythm Respiratory: Yes: CTA Bilaterally Gastrointestinal: Yes: Normal Bowel Sounds Extremities: Yes: WNL Neurological: Yes: Alert, Oriented Labs: CBC, BMP 10/03/17 06:30 10/03/17 06:30 INR, PTT INR 1.07 (0.82-1.09) 10/02/17 12:20 Problem List - Problems (1) Facial droop Assessment/Plan: resolved Code(s): R29.810 - FACIAL WEAKNESS (2) Headache Assessment/Plan: on pain meds doing well Code(s): R51 - HEADACHE Qualifiers: Headache type: unspecified Headache chronicity pattern: episodic headache Intractability: not intractable Qualified Code(s): R51 - Headache (3) Anxiety and depression Assessment/Plan: on meds Code(s): F41.8 - OTHER SPECIFIED ANXIETY DISORDERS (4) HTN (hypertension) Assessment/Plan: on meds stable Code(s): I10 - ESSENTIAL (PRIMARY) HYPERTENSION (5) Hyperlipidemia Assessment/Plan: on meds stable Code(s): E78.5 - HYPERLIPIDEMIA, UNSPECIFIED (6) Hypothyroid Assessment/Plan: on meds Code(s): E03.9 - HYPOTHYROIDISM, UNSPECIFIED (7) Coronary artery disease Assessment/Plan: d/w cardiology pt will be transfered to tertiary care for cardiac cath Code(s): I25.10 - ATHSCL HEART DISEASE OF [place] CORONARY ARTERY W/O ANG PCTRS
--- NOTE | 2017-10-05 11:27 | PN ---
Progress Note, Physician History of Present Illness: [facility] examined [facility]. no overnight events. no new complaints. - Current Medication List Current Medications: Active Medications Alprazolam (Xanax -) 0.5 mg PO HS [facility] Last Admin: 10/04/17 21:43 Dose: 0.5 mg Atorvastatin Calcium (Lipitor -) 80 mg PO HS [facility] Last Admin: 10/04/17 21:43 Dose: 80 mg Clopidogrel Bisulfate (Plavix -) 75 mg PO DAILY [facility] Last Admin: 10/05/17 11:10 Dose: 75 mg Dexamethasone Sodium Phosphate (Decadron Injection -) 4 mg IVPUSH Q8H-IV [facility] Last Admin: 10/05/17 11:10 Dose: 4 mg Diphenhydramine HCl (Benadryl -) 25 mg PO Q6H PRN PRN Reason: ITCHINESS Last Admin: 10/03/17 18:55 Dose: 25 mg Fenofibric Acid (Trilipix -) 45 mg PO DAILY [facility] Last Admin: 10/05/17 11:10 Dose: 45 mg Levothyroxine Sodium (Synthroid -) 50 mcg PO DAILY@0700 [facility] Last Admin: 10/05/17 06:05 Dose: 50 mcg Metoclopramide HCl (Reglan Injection -) 10 mg IVPUSH Q8H PRN PRN Reason: NAUSEA AND/OR VOMITING Last Admin: 10/05/17 08:48 Dose: 10 mg Metoprolol Succinate (Toprol Xl -) 25 mg PO DAILY [facility] Last Admin: 10/05/17 11:10 Dose: 25 mg Morphine Sulfate (Morphine Injection -) 4 mg IVPUSH Q6H PRN PRN Reason: PAIN LEVEL 7 - 10 Last Admin: 10/05/17 04:46 Dose: 4 mg Ranolazine (Ranexa -) 500 mg PO BID [facility] Last Admin: 10/05/17 11:10 Dose: 500 mg Valproate Sodium (Depacon Injection -) 500 mg IVPB TID [facility] Last Admin: 10/05/17 06:05 Dose: 500 mg - Objective Vital Signs: Vital Signs Temperature 97.5 F L 10/05/17 09:05 Pulse Rate 86 10/05/17 09:05 Respiratory Rate 18 10/05/17 09:05 Blood Pressure 115/63 10/05/17 08:42 O2 Sat by Pulse Oximetry (%) 97 10/04/17 22:00 Constitutional: Yes: No Distress, Calm Eyes: Yes: Conjunctiva Clear, EOM Intact, PERRL HENT: Yes: Atraumatic, Normocephalic Neck: Yes: Supple, Trachea Midline Cardiovascular: Yes: Regular Rate and Rhythm, S1, S2. No: Bradycardia, Tachycardia, Pulse Irregular, Bruit, JVD, Gallop, Murmur, Rub, S3, S4, Varicosities Respiratory: Yes: Regular, CTA Bilaterally. No: Rales, Rhonchi, Wheezes Gastrointestinal: Yes: Normal Bowel Sounds, Soft. No: Distention, Tenderness Extremities: Yes: WNL Edema: No Peripheral Pulses WNL: Yes Neurological: Yes: Alert, Oriented Psychiatric: Yes: Alert, Oriented Labs: CBC, BMP 10/03/17 06:30 10/03/17 06:30 INR, PTT INR 1.07 (0.82-1.09) 10/02/17 12:20 - ....Imaging Chest X-ray: Report Reviewed, Image Reviewed EKG: Report Reviewed, Image Reviewed Other: Report Reviewed, Image Reviewed Assessment/Plan 56 year old woman h/o COPD, HTN, hypothyroidism, hyperlipidemia, migraines and prior TIA, and CVA x 2, s/p craniotomy for cerebral left anterior communicating artery aneurysm clipping, migraine headaches, obesity, anxiety/depression, cigarettes, family hx [place] (father, at young age), fibromyalgia, admitetd with slurred speech, facial droop, and weakness, occasional chest pain. CAD- -nuclear stress test yesterday showed ischemia -now on plavix, lipitor, toprol, ranexa -clarify if ASA in addition to Plavix also safe -plan is for transfer for cardiac cath after the weekend
[2017-10-05] MEDS: diphenhydrAMINE HCL 25 MG CAPSULE (FP) PO PRN (18:30)
--- NOTE | 2017-10-05 19:13 | PN ---
Progress Note, Physician History of Present Illness: 56 y/o lady with a PMHx. sig for hypothyroidism, angina, right ant.cerebral art. aneurysm clipping, recurrent bronchitis, chronic vertigo hyperlipidemia and chronic migraine without aura. Meds-Synthroid, Fenofibrate, Ranexa, Meclizine and Botox every 3 months for migraine prophylaxis(last given 1 month ago with good results, WELDON has recurred 2 days ago). Reports yesterday her PMD noted right facial droop and she has had hesitant speech and word finding difficulty, intermittent.In my office today i noted the facial deficit and hesitaant speech in addition to a hint of possible upper face weakness-sent to ER where the ER physician also noted right arm weakness. No other neurologic symptoms. FU Neurology : I saw and examined the pt today. She states that her R side face weakness and slurred speech is improved; she reports having mild old R HP after aneurysm sx which was worsen prior to this admission- this occurred 3 weeks after botox injection for migraine - . She still c/o headache . MRI BRAIN IMPRESSION: 1. No evidence of acute infarction or intracranial mass. No abnormal contrast enhancement within the leptomeninges or brain. 2. Postsurgical changes related to left frontotemporal craniotomy as described above, with encephalomalacia/gliosis in the inferolateral left frontal lobe and aneurysm clip in the region of the anterior communicating artery. PE: A & o X3 , mild dysarthria CN: 2-12 int ; no face droop or gaze preference Motor: mild R UE drift , ? base line; R LE 5-/5 Sensory : Int LT/PP No dysmetria DTR 1+ ALL Gait: stable CV: RRR Lungs : CTA b/l A/P: ? Basilar migraine , refractory not a DHE candidate b/o CAD ? [place] palsy C/W depakote and dexamethasone I suggest magnesium sulfate 1 gm iv Health maintenance per primary team. Thank you. Patrick Nava MD - Current Medication List Current Medications: Active Medications Alprazolam (Xanax -) 0.5 mg PO HS [facility] Last Admin: 10/04/17 21:43 Dose: 0.5 mg Atorvastatin Calcium (Lipitor -) 80 mg PO HS [facility] Last Admin: 10/04/17 21:43 Dose: 80 mg Clopidogrel Bisulfate (Plavix -) 75 mg PO DAILY [facility] Last Admin: 10/05/17 11:10 Dose: 75 mg Dexamethasone Sodium Phosphate (Decadron Injection -) 4 mg IVPUSH Q8H-IV [facility] Last Admin: 10/05/17 18:30 Dose: 4 mg Diphenhydramine HCl (Benadryl -) 25 mg PO Q6H PRN PRN Reason: ITCHINESS Last Admin: 10/05/17 18:30 Dose: 25 mg Fenofibric Acid (Trilipix -) 45 mg PO DAILY [facility] Last Admin: 10/05/17 11:10 Dose: 45 mg Levothyroxine Sodium (Synthroid -) 50 mcg PO DAILY@0700 [facility] Last Admin: 10/05/17 06:05 Dose: 50 mcg Metoclopramide HCl (Reglan Injection -) 10 mg IVPUSH Q8H PRN PRN Reason: NAUSEA AND/OR VOMITING Last Admin: 10/05/17 08:48 Dose: 10 mg Metoprolol Succinate (Toprol Xl -) 25 mg PO DAILY [facility] Last Admin: 10/05/17 11:10 Dose: 25 mg Morphine Sulfate (Morphine Injection -) 4 mg IVPUSH Q6H PRN PRN Reason: PAIN LEVEL 7 - 10 Last Admin: 10/05/17 13:50 Dose: 4 mg Ranolazine (Ranexa -) 500 mg PO BID [facility] Last Admin: 10/05/17 11:10 Dose: 500 mg Valproate Sodium (Depacon Injection -) 500 mg IVPB TID [facility] Last Admin: 10/05/17 13:50 Dose: 500 mg - Objective Vital Signs: Vital Signs Temperature 98.0 F 10/05/17 14:25 Pulse Rate 63 10/05/17 14:25 Respiratory Rate 20 10/05/17 15:00 Blood Pressure 118/60 10/05/17 14:25 O2 Sat by Pulse Oximetry (%) 97 10/05/17 15:00 Labs: CBC, BMP 10/03/17 06:30 10/03/17 06:30 INR, PTT INR 1.07 (0.82-1.09) 10/02/17 12:20
[2017-10-05] MEDS: ATORVASTATIN CA 80 MG TABLET (FP) PO SCH (21:59)
[2017-10-05] MEDS: ALPRAZolam 0.25 MG TABLET PO SCH (22:00)
[2017-10-06] MEDS: MORPHINE SULFATE 10 MG/1 ML *VIAL IVPUSH PRN ×2 (00:20→21:44)
[2017-10-06] MEDS: DEXAMETHASONE SOD PHOSPHATE 4 MG/1 ML VIAL IVPUSH SCH ×3 (02:12→18:55)
[2017-10-06] MEDS ORDERED: PT OWN MED DRAWER 7, Y5N ONE ×3 (06:21→21:40)
[2017-10-06] MEDS: LEVOTHYROXINE NA 50 MCG TABLET (FP) PO SCH (06:26)
[2017-10-06] MEDS: VALPROATE SODIUM 500 MG/5 ML VIAL IVPB SCH ×3 (06:27→21:45)
[2017-10-06] MEDS: FENOFIBRIC ACID 45 MG CAP PO SCH (09:24)
[2017-10-06] MEDS: RANOLAZINE E.R. 500 MG TABLET (FP) PO SCH ×2 (09:24→21:44)
[2017-10-06] MEDS: metoPROLOL SUCCINATE 25 MG TAB.SR.24H (FP) PO SCH (09:24)
[2017-10-06] MEDS: CLOPIDOGREL BISULFATE 75 MG TABLET (FP) PO SCH (09:24)
--- NOTE | 2017-10-06 14:02 | PN ---
Progress Note, Physician History of Present Illness: seen and examined today in [facility]. no new complaints. no overnight events. - Current Medication List Current Medications: Active Medications Alprazolam (Xanax -) 0.5 mg PO HS [facility] Last Admin: 10/05/17 22:00 Dose: 0.5 mg Atorvastatin Calcium (Lipitor -) 80 mg PO HS [facility] Last Admin: 10/05/17 21:59 Dose: 80 mg Clopidogrel Bisulfate (Plavix -) 75 mg PO DAILY [facility] Last Admin: 10/06/17 09:24 Dose: 75 mg Dexamethasone Sodium Phosphate (Decadron Injection -) 4 mg IVPUSH Q8H-IV [facility] Last Admin: 10/06/17 09:24 Dose: 4 mg Diphenhydramine HCl (Benadryl -) 25 mg PO Q6H PRN PRN Reason: ITCHINESS Last Admin: 10/05/17 18:30 Dose: 25 mg Fenofibric Acid (Trilipix -) 45 mg PO DAILY [facility] Last Admin: 10/06/17 09:24 Dose: 45 mg Levothyroxine Sodium (Synthroid -) 50 mcg PO DAILY@0700 [facility] Last Admin: 10/06/17 06:26 Dose: 50 mcg Metoclopramide HCl (Reglan Injection -) 10 mg IVPUSH Q8H PRN PRN Reason: NAUSEA AND/OR VOMITING Last Admin: 10/05/17 08:48 Dose: 10 mg Metoprolol Succinate (Toprol Xl -) 25 mg PO DAILY [facility] Last Admin: 10/06/17 09:24 Dose: 25 mg Morphine Sulfate (Morphine Injection -) 4 mg IVPUSH Q6H PRN PRN Reason: PAIN LEVEL 7 - 10 Last Admin: 10/06/17 00:20 Dose: 4 mg Ranolazine (Ranexa -) 500 mg PO BID [facility] Last Admin: 10/06/17 09:24 Dose: 500 mg Valproate Sodium (Depacon Injection -) 500 mg IVPB TID [facility] Last Admin: 10/06/17 06:27 Dose: 500 mg - Objective Vital Signs: Vital Signs Temperature 98.5 F 10/06/17 09:00 Pulse Rate 83 10/06/17 09:00 Respiratory Rate 18 10/06/17 09:00 Blood Pressure 141/71 10/06/17 09:00 O2 Sat by Pulse Oximetry (%) 98 10/06/17 06:00 Constitutional: Yes: No Distress, Calm Eyes: Yes: Conjunctiva Clear, EOM Intact, PERRL HENT: Yes: Atraumatic, Normocephalic Neck: Yes: Supple, Trachea Midline Cardiovascular: Yes: Regular Rate and Rhythm, S1, S2. No: Bradycardia, Tachycardia, Pulse Irregular, Bruit, JVD, Gallop, Murmur, Rub, S3, S4, Varicosities Respiratory: Yes: Regular, CTA Bilaterally. No: Rales, Rhonchi, Wheezes Gastrointestinal: Yes: Normal Bowel Sounds, Soft. No: Distention, Tenderness Musculoskeletal: Yes: WNL Extremities: Yes: WNL Edema: No Peripheral Pulses WNL: Yes Peripheral Pulses: Left Doralis Pedis: 2+, Right Dorsalis Pedis: 2+ Integumentary: Yes: WNL Neurological: Yes: Alert, Oriented Psychiatric: Yes: Alert, Oriented Labs: CBC, BMP 10/03/17 06:30 10/03/17 06:30 INR, PTT INR 1.07 (0.82-1.09) 10/02/17 12:20 - ....Imaging Chest X-ray: Report Reviewed, Image Reviewed EKG: Report Reviewed, Image Reviewed Other: Report Reviewed, Image Reviewed Assessment/Plan 56 year old woman h/o COPD, HTN, hypothyroidism, hyperlipidemia, migraines and prior TIA, and CVA x 2, s/p craniotomy for cerebral left anterior communicating artery aneurysm clipping, migraine headaches, obesity, anxiety/depression, cigarettes, family hx [place] (father, at young age), fibromyalgia, admitetd with slurred speech, facial droop, and weakness, occasional chest pain. CAD- -nuclear stress test showed ischemia -now on plavix, lipitor, toprol, ranexa -clarify if ASA in addition to Plavix also safe -plan is for transfer for cardiac cath after the weekend
--- NOTE | 2017-10-06 15:00 | PN ---
Progress Note, Physician - Current Medication List Current Medications: Active Medications Alprazolam (Xanax -) 0.5 mg PO HS [facility] Last Admin: 10/05/17 22:00 Dose: 0.5 mg Atorvastatin Calcium (Lipitor -) 80 mg PO HS [facility] Last Admin: 10/05/17 21:59 Dose: 80 mg Clopidogrel Bisulfate (Plavix -) 75 mg PO DAILY [facility] Last Admin: 10/06/17 09:24 Dose: 75 mg Dexamethasone Sodium Phosphate (Decadron Injection -) 4 mg IVPUSH Q8H-IV [facility] Last Admin: 10/06/17 09:24 Dose: 4 mg Diphenhydramine HCl (Benadryl -) 25 mg PO Q6H PRN PRN Reason: ITCHINESS Last Admin: 10/05/17 18:30 Dose: 25 mg Fenofibric Acid (Trilipix -) 45 mg PO DAILY [facility] Last Admin: 10/06/17 09:24 Dose: 45 mg Levothyroxine Sodium (Synthroid -) 50 mcg PO DAILY@0700 [facility] Last Admin: 10/06/17 06:26 Dose: 50 mcg Metoclopramide HCl (Reglan Injection -) 10 mg IVPUSH Q8H PRN PRN Reason: NAUSEA AND/OR VOMITING Last Admin: 10/05/17 08:48 Dose: 10 mg Metoprolol Succinate (Toprol Xl -) 25 mg PO DAILY [facility] Last Admin: 10/06/17 09:24 Dose: 25 mg Morphine Sulfate (Morphine Injection -) 4 mg IVPUSH Q6H PRN PRN Reason: PAIN LEVEL 7 - 10 Last Admin: 10/06/17 00:20 Dose: 4 mg Ranolazine (Ranexa -) 500 mg PO BID [facility] Last Admin: 10/06/17 09:24 Dose: 500 mg Valproate Sodium (Depacon Injection -) 500 mg IVPB TID [facility] Last Admin: 10/06/17 06:27 Dose: 500 mg - Objective Vital Signs: Vital Signs Temperature 97.8 F 10/06/17 14:11 Pulse Rate 71 10/06/17 14:56 Respiratory Rate 18 10/06/17 14:56 Blood Pressure 153/97 10/06/17 14:56 O2 Sat by Pulse Oximetry (%) 98 10/06/17 06:00 Constitutional: Yes: No Distress HENT: Yes: Atraumatic Neck: Yes: Supple Cardiovascular: Yes: Regular Rate and Rhythm Respiratory: Yes: CTA Bilaterally Gastrointestinal: Yes: Normal Bowel Sounds Extremities: Yes: WNL Edema: No Peripheral Pulses WNL: Yes Neurological: Yes: Alert, Oriented Labs: CBC, BMP 10/03/17 06:30 10/03/17 06:30 INR, PTT INR 1.07 (0.82-1.09) 10/02/17 12:20 Problem List - Problems (1) Facial droop Assessment/Plan: resolved Code(s): R29.810 - FACIAL WEAKNESS (2) Headache Assessment/Plan: on pain meds doing well Code(s): R51 - HEADACHE Qualifiers: Headache type: unspecified Headache chronicity pattern: episodic headache Intractability: not intractable Qualified Code(s): R51 - Headache (3) Anxiety and depression Assessment/Plan: on meds Code(s): F41.8 - OTHER SPECIFIED ANXIETY DISORDERS (4) HTN (hypertension) Assessment/Plan: bp eevated today will add norvasc for transfer for cath tomorrow Code(s): I10 - ESSENTIAL (PRIMARY) HYPERTENSION (5) Hyperlipidemia Assessment/Plan: on meds stable Code(s): E78.5 - HYPERLIPIDEMIA, UNSPECIFIED (6) Hypothyroid Code(s): E03.9 - HYPOTHYROIDISM, UNSPECIFIED (7) Coronary artery disease Code(s): I25.10 - ATHSCL HEART DISEASE OF [place] CORONARY ARTERY W/O ANG PCTRS
--- NOTE | 2017-10-06 15:08 | PN ---
Progress Note, Physician History of Present Illness: 56 y/o lady with a PMHx. sig for hypothyroidism, angina, right ant.cerebral art. aneurysm clipping, recurrent bronchitis, chronic vertigo hyperlipidemia and chronic migraine without aura. Meds-Synthroid, Fenofibrate, Ranexa, Meclizine and Botox every 3 months for migraine prophylaxis(last given 1 month ago with good results, WELDON has recurred 2 days ago). Reports yesterday her PMD noted right facial droop and she has had hesitant speech and word finding difficulty, intermittent.In my office today i noted the facial deficit and hesitaant speech in addition to a hint of possible upper face weakness-sent to ER where the ER physician also noted right arm weakness. No other neurologic symptoms. FU Neurology : I saw and examined the pt today. She still c/o headache ; will be transfer for heart cath on Saturday . MRI BRAIN IMPRESSION: 1. No evidence of acute infarction or intracranial mass. No abnormal contrast enhancement within the leptomeninges or brain. 2. Postsurgical changes related to left frontotemporal craniotomy as described above, with encephalomalacia/gliosis in the inferolateral left frontal lobe and aneurysm clip in the region of the anterior communicating artery. PE: A & o X3 , mild dysarthria CN: 2-12 int ; no face droop or gaze preference Motor: mild R UE drift , ? base line; R LE 5-/5 Sensory : Int LT/PP No dysmetria DTR 1+ ALL Gait: stable CV: RRR Lungs : CTA b/l A/P: ? Basilar migraine , refractory not a DHE candidate b/o CAD ? Reading palsy C/W depakote and dexamethasone I suggest magnesium sulfate 1 gm iv Health maintenance per primary team. Thank you. Patrick Nava MD - Current Medication List Current Medications: Active Medications Alprazolam (Xanax -) 0.5 mg PO HS [facility] Last Admin: 10/05/17 22:00 Dose: 0.5 mg Amlodipine Besylate (Norvasc -) 5 mg PO DAILY [facility] Atorvastatin Calcium (Lipitor -) 80 mg PO HS [facility] Last Admin: 10/05/17 21:59 Dose: 80 mg Clopidogrel Bisulfate (Plavix -) 75 mg PO DAILY [facility] Last Admin: 03/04/18 09:24 Dose: 75 mg Dexamethasone Sodium Phosphate (Decadron Injection -) 4 mg IVPUSH Q8H-IV [facility] Last Admin: 10/06/17 09:24 Dose: 4 mg Diphenhydramine HCl (Benadryl -) 25 mg PO Q6H PRN PRN Reason: ITCHINESS Last Admin: 10/05/17 18:30 Dose: 25 mg Fenofibric Acid (Trilipix -) 45 mg PO DAILY [facility] Last Admin: 10/06/17 09:24 Dose: 45 mg Levothyroxine Sodium (Synthroid -) 50 mcg PO DAILY@0700 [facility] Last Admin: 10/06/17 06:26 Dose: 50 mcg Metoclopramide HCl (Reglan Injection -) 10 mg IVPUSH Q8H PRN PRN Reason: NAUSEA AND/OR VOMITING Last Admin: 10/05/17 08:48 Dose: 10 mg Metoprolol Succinate (Toprol Xl -) 25 mg PO DAILY [facility] Last Admin: 10/06/17 09:24 Dose: 25 mg Morphine Sulfate (Morphine Injection -) 4 mg IVPUSH Q6H PRN PRN Reason: PAIN LEVEL 7 - 10 Last Admin: 10/06/17 00:20 Dose: 4 mg Ranolazine (Ranexa -) 500 mg PO BID [facility] Last Admin: 10/06/17 09:24 Dose: 500 mg Valproate Sodium (Depacon Injection -) 500 mg IVPB TID [facility] Last Admin: 10/06/17 06:27 Dose: 500 mg - Objective Vital Signs: Vital Signs Temperature 97.8 F 10/06/17 14:11 Pulse Rate 71 10/06/17 14:56 Respiratory Rate 18 10/06/17 14:56 Blood Pressure 153/97 10/06/17 14:56 O2 Sat by Pulse Oximetry (%) 98 10/06/17 06:00 Labs: CBC, BMP 10/03/17 06:30 10/03/17 06:30 INR, PTT INR 1.07 (0.82-1.09) 10/02/17 12:20
[2017-10-06] MEDS ORDERED: MAGNESIUM SULF 50% (8.12 MEQ/2 ML-1 GM VIAL) IVPB ONE (15:14)
--- NOTE | 2017-10-06 15:21 | DS ---
Physical Examination Vital Signs: Vital Signs Temperature 97.8 F 10/06/17 14:11 Pulse Rate 71 10/06/17 14:56 Respiratory Rate 18 10/06/17 14:56 Blood Pressure 153/97 10/06/17 14:56 O2 Sat by Pulse Oximetry (%) 98 10/06/17 06:00 Labs: CBC, BMP 10/03/17 06:30 10/03/17 06:30 Discharge Summary Reason For Visit: HEADACHE,FACIAL WEAKNESS Current Active Problems Anxiety and depression (Acute) Bronchial asthma (Acute) CVA (cerebral vascular accident) (Acute) Coronary artery disease (Acute) Facial droop (Acute) HTN (hypertension) (Acute) Headache (Acute) Hyperlipidemia (Acute) Hypothyroid (Acute) Obesity (Acute) Risk for coronary artery disease between 10% and 20% in next 10 years per Pendleton score (Acute) Condition: Stable - Instructions Referrals: ON STAFF,NOT [Primary Care Provider] - - Home Medications Comprehensive Discharge Medication List: Ambulatory Orders Fenofibrate,Micronized [Fenofibrate] 67 mg PO DAILY 10/02/17 Levothyroxine [Synthroid -] 50 mcg PO DAILY 10/02/17 Ranolazine [Ranexa] 500 mg PO BID 10/02/17 Amlodipine Besylate [Norvasc -] 5 mg PO DAILY #30 tablet 10/06/17 Atorvastatin Ca [Lipitor] 80 mg PO HS tablet 10/06/17 Clopidogrel Bisulfate [Plavix -] 75 mg PO DAILY #30 tablet 10/06/17 Dexamethasone Injection [Decadron Injection -] 4 mg IVPUSH Q8H-IV vial Metoprolol Succinate [Toprol XL -] 25 mg PO DAILY #30 tab.sr.24h 10/06/17 Valproate Sodium Injection [Depacon Injection -] 500 mg IVPB TID vial 10/06/17
[2017-10-06] MEDS: amLODIPine BESYLATE 5 MG TABLET (FP) PO SCH (15:28)
[2017-10-06] MEDS ORDERED: MAGNESIUM 1GM/D5W - 1 GM/100 ML IVPB IVPB ONE (15:30)
[2017-10-06] MEDS: ALPRAZolam 0.25 MG TABLET PO SCH (21:44)
[2017-10-06] MEDS: ATORVASTATIN CA 80 MG TABLET (FP) PO SCH (21:44)
[2017-10-07] MEDS: DEXAMETHASONE SOD PHOSPHATE 4 MG/1 ML VIAL IVPUSH SCH ×2 (02:04→11:05)
[2017-10-07] MEDS ORDERED: PT OWN MED DRAWER 7, Y5N ONE ×2 (06:18→11:00)
[2017-10-07] MEDS: LEVOTHYROXINE NA 50 MCG TABLET (FP) PO SCH (06:21)
[2017-10-07] MEDS: VALPROATE SODIUM 500 MG/5 ML VIAL IVPB SCH (06:21)
[2017-10-07] MEDS: amLODIPine BESYLATE 5 MG TABLET (FP) PO SCH (11:05)
[2017-10-07] MEDS: CLOPIDOGREL BISULFATE 75 MG TABLET (FP) PO SCH (11:05)
[2017-10-07] MEDS: metoPROLOL SUCCINATE 25 MG TAB.SR.24H (FP) PO SCH (11:05)
[2017-10-07] MEDS: FENOFIBRIC ACID 45 MG CAP PO SCH (11:06)
[2017-10-07] MEDS: RANOLAZINE E.R. 500 MG TABLET (FP) PO SCH (11:11)
--- NOTE | 2017-10-07 11:42 | PN ---
Progress Note, Physician History of Present Illness: The patient is a 56 year old female, with a significant past medical history of COPD, HTN, hypothyroidism, hyperlipidemia, migraines and prior TIA, and CVA x 2 , s/p craniotomy for cerebral left anterior communicating artery aneurysm clipping, migraine headaches, obesity, anxiety/depression, cigarettes, family hx [place] (father, at young age), fibromyalgia, who presents to the emergency department sent by her neurologist Dr. Leslie, for evaluation of slurred speech, facial droop, and weakness since last night. The patient reports she felt bad last night. As per Dr. Leslie, patient has a history of TIAs in the past, however , he sent the patient to the ED for MRI with gadolinium to rule out neurosarcoidosis. Per Dr. Leslie, patients symptoms are intermittent and she did not have any difficulty finding words in the office. Patients history is limited due to clinical condition. Patient last known well yesterday. Pt also has occasional sudden onset of central chest tightness that awakens her , is moderately severe in intensity (8/10), and may last several minutes. Pt has had nitroglycerin, but forgets to use it. It does not usually occur with exertion, but pt admits to being relatively sedentary. Allergies: Erythromycin base Neurologist: Dr. Leslie PCP: Dr. Pandya - Current Medication List Current Medications: Active Medications Alprazolam (Xanax -) 0.5 mg PO HS [facility] Last Admin: 10/06/17 21:44 Dose: 0.5 mg Amlodipine Besylate (Norvasc -) 5 mg PO DAILY [facility] Last Admin: 10/07/17 11:05 Dose: 5 mg Atorvastatin Calcium (Lipitor -) 80 mg PO HS [facility] Last Admin: 10/06/17 21:44 Dose: 80 mg Clopidogrel Bisulfate (Plavix -) 75 mg PO DAILY [facility] Last Admin: 10/07/17 11:05 Dose: 75 mg Dexamethasone Sodium Phosphate (Decadron Injection -) 4 mg IVPUSH Q8H-IV [facility] Last Admin: 10/07/17 11:05 Dose: 4 mg Diphenhydramine HCl (Benadryl -) 25 mg PO Q6H PRN PRN Reason: ITCHINESS Last Admin: 10/05/17 18:30 Dose: 25 mg Fenofibric Acid (Trilipix -) 45 mg PO DAILY [facility] Last Admin: 10/07/17 11:06 Dose: 45 mg Levothyroxine Sodium (Synthroid -) 50 mcg PO DAILY@0700 [facility] Last Admin: 10/07/17 06:21 Dose: 50 mcg Metoclopramide HCl (Reglan Injection -) 10 mg IVPUSH Q8H PRN PRN Reason: NAUSEA AND/OR VOMITING Last Admin: 10/05/17 08:48 Dose: 10 mg Metoprolol Succinate (Toprol Xl -) 25 mg PO DAILY [facility] Last Admin: 10/07/17 11:05 Dose: 25 mg Morphine Sulfate (Morphine Injection -) 4 mg IVPUSH Q6H PRN PRN Reason: PAIN LEVEL 7 - 10 Last Admin: 10/06/17 21:44 Dose: 4 mg Ranolazine (Ranexa -) 500 mg PO BID [facility] Last Admin: 10/07/17 11:11 Dose: 500 mg Valproate Sodium (Depacon Injection -) 500 mg IVPB TID [facility] Last Admin: 10/07/17 06:21 Dose: 500 mg - Objective Vital Signs: Vital Signs Temperature 97.8 F 10/07/17 06:00 Pulse Rate 67 10/07/17 06:00 Respiratory Rate 20 10/07/17 06:00 Blood Pressure 140/72 10/07/17 06:00 O2 Sat by Pulse Oximetry (%) 96 10/07/17 06:00 Eyes: Yes: WNL, Conjunctiva Clear, EOM Intact HENT: Yes: WNL, Atraumatic, Normocephalic Neck: Yes: WNL, Supple, Trachea Midline Cardiovascular: Yes: WNL, Regular Rate and Rhythm Respiratory: Yes: WNL, Regular, CTA Bilaterally Gastrointestinal: Yes: WNL, Normal Bowel Sounds Genitourinary: Yes: WNL Musculoskeletal: Yes: WNL Extremities: Yes: WNL Edema: No Integumentary: Yes: WNL Neurological: Yes: WNL, Alert, Oriented ...Motor Strength: WNL Psychiatric: Yes: WNL Labs: CBC, BMP 10/03/17 06:30 10/03/17 06:30 INR, PTT INR 1.07 (0.82-1.09) 10/02/17 12:20 Assessment/Plan 56 year old woman h/o COPD, HTN, hypothyroidism, hyperlipidemia, migraines and prior TIA, and CVA x 2, s/p craniotomy for cerebral left anterior communicating artery aneurysm clipping, migraine headaches, obesity, anxiety/depression, cigarettes, family hx [place] (father, at young age), fibromyalgia, admitetd with slurred speech, facial droop, and weakness, occasional chest pain. CAD- -nuclear stress test showed ischemia -now on plavix, lipitor, toprol, ranexa -clarify if ASA in addition to Plavix also safe c cath today
[2017-10-07] MEDS ORDERED: MAGNESIUM 1GM/D5W - 1 GM/100 ML IVPB IVPB ONE (12:30)
[2017-10-07 14:07] VITALS: BP 145/90; PULSE 64; TEMP 98.6
== END 2017-10-07 14:30 | disposition short-term general hospital (02) | DRG 74 ==
LOC: JER 11:46 → JERBED 13:56 → J6S 17:46 → OBSVTOIN 10-05 11:15
PROVIDERS: ADMIT Internal Medicine; ATTEND Internal Medicine
DX: G51.0 Bell's palsy (principal); I25.110 Atherosclerotic heart disease of native coronary artery with unstable angina pectoris; J44.9 Chronic obstructive pulmonary disease, unspecified; G43.809 Other migraine, not intractable, without status migrainosus; R42 Dizziness and giddiness; E78.5 Hyperlipidemia, unspecified; E03.9 Hypothyroidism, unspecified; E66.8 Other obesity; M79.7 Fibromyalgia; F41.8 Other specified anxiety disorders; Z68.37 Body mass index [BMI] 37.0-37.9, adult; I10 Essential (primary) hypertension; R07.89 Other chest pain; F17.200 Nicotine dependence, unspecified, uncomplicated; R29.810 Facial weakness; R53.1 Weakness; Z91.89 Other specified personal risk factors, not elsewhere classified; Z86.73 Personal history of transient ischemic attack (TIA), and cerebral infarction without residual deficits
CPT/HCPCS: 36415; 70450-TC; 70553-TC; 78452-TC; 80053; 82465; 82550; 83718; 83721; 84443; 84478; 84484; 85025; 85610; 85651; 86140; 86618; 86850; 86900; 86901; 90670; 93005; 93010; 93017; 93306-TC; 93970-TC; 97116-GP; 97161-GP; 99284-25; A9502; G0378